=== PATIENT | male | born 1970 | race Caucasian/White ===

== ENCOUNTER 2016-08-22 15:41 | Emergency (ER) | payer BC, OTHER ==
[2016-08-22] MEDS ORDERED: Ketorolac INJ* 30 MG/ML 1 ML VIAL IM ONE (15:53)
[2016-08-22] MEDS ORDERED: HYDROcodone/ACETAMIN 5-325 MG* 1 TAB PO ONE ×2 (15:53→17:16)
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
[2016-08-22] MEDS ORDERED: HYDROcodone/ACETAMIN 5-325 MG* 1 TAB ONE (16:10)
--- NOTE | 2016-08-22 16:53 | RAD ---
INDICATION: Back injury. COMPARISON: There are no prior studies available for comparison. TECHNIQUE: AP and lateral films of the spine were obtained centered at the dorsal lumbar junction. FINDINGS: There is a mild scoliosis convex toward the right side. The vertebra are otherwise in normal alignment. No fracture is seen. There is mild to moderate degenerative disc disease in the lower dorsal and upper lumbar spine. IMPRESSION: NO EVIDENCE FOR FRACTURE.
--- NOTE | 2016-08-22 16:59 | RAD ---
INDICATION: Trauma posterior inferior right rib pain. TECHNIQUE: 4 views of the right ribs and dual-energy PA views of the chest were obtained. FINDINGS: No fracture or significant focal osseous abnormality is seen. The lungs are clear. No pneumothorax or pleural effusion is seen. The heart is within normal limits in size. IMPRESSION: NO EVIDENCE FOR FRACTURE.
[2016-08-22 17:39] VITALS: BP 174/117
== END 2016-08-22 17:48 | disposition home or self-care (01) ==
LOC: ED 15:41
DX: M54.9 Dorsalgia, unspecified (principal); S20.229A Contusion of unspecified back wall of thorax, initial encounter; W19.XXXA Unspecified fall, initial encounter; Y93.9 Activity, unspecified; Y92.9 Unspecified place or not applicable
CPT/HCPCS: 72080; 96372; 99282; J1885